=== PATIENT | male | born 1990 | race Caucasian/White ===

== ENCOUNTER 2017-07-10 03:22 | Emergency (ER) | payer SELFPAY ==
[~2017-07-10] VITALS: Ht 167.6 cm; Wt 60.0 kg
[2017-07-10 03:25] VITALS: BP 122/73; PULSE 101; RESP 18; TEMP 98.2; O2SAT 100
[2017-07-10] MEDS ORDERED: ACETAMINOPHEN/HYDROcodone 325 MG/5 MG TAB PO ONE (03:30)
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
[2017-07-10 04:17] LABS: AUTOMATED NEUTROPHIL # 6.2 TH/MM3 (1.8-7.7); BASOPHIL # 0.1 TH/MM3 (0-0.2); BASOPHIL % 0.6 % (0.0-2.0); EOSINOPHIL % 0.3 % (0.0-4.0); HEMO FLAGS DIFF FINAL; LYMPH % 26.5 % (9.0-44.0); LYMPHOCYTE # 2.6 TH/MM3 (1.0-4.8); MEAN CELL VOLUME 94.6 FL (80.0-100.0); MEAN CORPUSCULAR HEMOGLOBIN 31.7 PG (27.0-34.0); MEAN CORPUSCULAR HGB CONC 33.5 % (32.0-36.0); MONO % 8.4 % (0.0-8.0); NEUT % 64.2 % (16.0-70.0); PLATELET COUNT 231 TH/MM3 (150-450); RED BLOOD COUNT 4.96 MIL/MM3 (4.50-5.90); WHITE BLOOD COUNT 9.6 TH/MM3 (4.0-11.0)
--- NOTE | 2017-07-10 04:23 | RADRPT ---
EXAM DATE/TIME: 07/10/2017 03:53 [facility] COMPARISON: No previous studies available for comparison. INDICATIONS : Left upper extremity pain, elbow. MEDICAL HISTORY : None. SURGICAL HISTORY : None. ENCOUNTER: Initial ACUITY: 1 day PAIN SCORE: 6/10 LOCATION: Left upper extremity elbow FINDINGS: Multiple view examination of the left elbow demonstrates no soft tissue swelling, joint effusion, or fracture. The osseous structures are in normal alignment. Bony mineralization is normal. CONCLUSION: Unremarkable examination of the left elbow. Seun Vicente MD on July 10, 2017 at 4:21 Board Certified Radiologist. This report was verified electronically.
--- NOTE | 2017-07-10 04:23 | RADRPT ---
EXAM DATE/TIME: 07/10/2017 03:45 [facility] COMPARISON: No previous studies available for comparison. INDICATIONS : Left upper extremity pain due to fall. MEDICAL HISTORY : None. SURGICAL HISTORY : None. ENCOUNTER: Initial ACUITY: 1 day PAIN SCORE: 6/10 LOCATION: Left upper extremity shoulder FINDINGS: Multiple view examination of the left shoulder demonstrates no evidence of fracture or dislocation. The glenohumeral and acromioclavicular joints are maintained. There is normal range of motion betwee n internal and external rotation. Bony mineralization is normal. CONCLUSION: Normal examination for a patient of this age. Seun Vicente MD on July 10, 2017 at 4:21 Board Certified Radiologist. This report was verified electronically.
[2017-07-10 04:52] LABS: ALT (GPT) 19 U/L (12-78); ANION GAP 9 MEQ/L (5-15); AST (GOT) 26 U/L (15-37); BICARBONATE 25.2 MEQ/L (21.0-32.0); BLOOD UREA NITROGEN 6 MG/DL (7-18); CHLORIDE 107 MEQ/L (98-107); GLOMERULAR FILTRATION RATE 109 ML/MIN (>89); POTASSIUM 4.2 MEQ/L (3.5-5.1); SODIUM (NA) 141 MEQ/L (136-145)
[2017-07-10 04:53] LABS: ALCOHOL 222 MG/DL (0-5)
[2017-07-10 04:54] LABS: ALKALINE PHOSPHATASE 71 U/L (45-117); TOTAL BILIRUBIN ADULT 0.6 MG/DL (0.2-1.0)
[2017-07-10 11:26] VITALS: BP 123/78; PULSE 87; RESP 18; TEMP 98.3; O2SAT 96
--- NOTE | 2017-07-10 12:08 | PD ---
History of Present Illness Chief Complaint: Psychiatric Symptoms Time Seen by Provider: 11:35 Travel History International Travel<30 Days: No Contact w/Intl Traveler<30days: No Known affected area: No Legal Status Legal Status: Voluntary History of Present Illness: History of Present Illness This is a 26-year-old male with vague psychiatric history who presents via EMS for evaluation of left arm pain as well as complaining of suicidal and homicidal ideation and depression. He reports a history of schizophrenia, depression, bipolar disorder, anxiety.He does not remember the names of his last prescribed medications except that he took Seroquel 50 mg at nighttime as well as Klonopin. He reports he has been off medications x 3 months since he moved to the area also 3 months ago. He currently does not have a psychiatrist that he sees on a regular basis and has not made any efforts at securing treatment since he has been here. 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 For unknown reasons he is no longer with him. He is not providing much information. He then tells me that he came down here to be with a girlfriend but he is no longer with her. He is reporting feeling depressed but is unable to tell me the symptoms he is experiencing and states " I'ts hard to explain the symptoms". He is vague regarding specific psychiatric symptoms and gets angry when he is asked for specifics. Antisocial personality traits are noted. He is requesting to get back in treatment including medications. He also talks about wanting to get back to [place] " where I have my 3 year old daughter". EMR reviewed. No previous contact with [facility]. BAL is 222 on arrival. No other lab work is available at this time. He has been monitored in Ed with a sitter at bedside with no suicidality or behaviors reported. The patient is in bed. Awake, alert and oriented, suntanned male who appears stated age.Clinically sober . He is wearing black pants and a t shirt and maintaining basic hygiene. He is irritable . Speech is clear and logical . There is no psychosis, no josiane and no hypomania. I can elicit no delusions or paranoia. He reports feeling depressed but I find no subjective clinical indication of a significant depressed state. He does not verbalize suicidal ideation and had no plan when he presented to the ED. he does not present any suicidal ideation and only threatens to " maybe do something " when a discussion of discharge from ED is initiated. He is invested in being admitted to this facility and I am suspicious of his true motives. I suspect that he may be malingering his symptoms to obtain secondary gains such as detention s. he has eluded to having terminated with his girlfriend and not wanting to talk with her or with her mother who has called . He admits to drinking some alcohol tonight. Denies any illicit drug use and denies that he drinks on a daily basis. PFSH Past Medical History ADHD: Yes Bipolar Disorder: Yes Schizophrenia: Yes Past Surgical History Other Surgery: Yes (HERNIA ) Psychiatric History Psychiatric History Hx Psychiatric Treatment: Reports that he was first hoispitalized at age 14 years for d epression. Two other hospitalizations but unable to remember the name of the facility or the dates. No hx of previous sucide attempt. History of Inpatient Treatment: Yes Guns or firearms in home: No Social History Single male. Moved to [facility] 3 months a go. has worked in construction. Hx Alcohol Use: Yes Hx Tobacco Use: Yes (1/2 PPD ) Hx Substance Use: No Substance Use Type: Alcohol Hx of Substance Use Treatment: No Family Psychiatric History Negative Allergies-Medications (Allergen,Severity, Reaction): Coded Allergies: No Known Allergies (Verified Allergy, Unknown, 07/10/17) Reported Meds & Prescriptions Reported Meds & Active Scripts Active No Active Prescriptions or Reported Medications Exam Alert: Yes [place]: Person (ox4) Mood: Angry Affect: Appropriate Speech: Clear, Logical Eye Contact: Normal Memory Intact: Comment (Not impiared) Hallucinations: Other (Negative) Delusions: No Suicidal: Plan (none) Homicidal: Ideation (negative) Insight/Judgement Poor . Not impaired. MDM Medical Decision Making Medical Record Reviewed: Yes Assessment/Plan This is a 26-year-old male with vague psychiatric history who presents via EMS for evaluation of left arm pain and later complaining of suicidal and homicidal ideation and depression. The patient was intoxicated on arrival with BAL of 222. He was vague in terms of symptomatology, previous medication, previous treatments. He was not interested in obtaining referral for [facility] mental health services as he was most interested in being admitted to this facility. he was angry when he was advised that he would not be admitted. He presents contradictions in terms of requesting treatment but then refusing when the treatment is not hospitalization. he does not meet criteria for inpatient treatment at this time and I suspect that he is malingering symptoms due to being homeless at this time. Cleared for discharge from psychiatry. Patient appears to be malingering for detention at this time. Orders Elbow, Complete (4 Vws) (07/10/17 ) Shoulder, Complete (>2vws) (07/10/17 ) Complete Blood Count With Diff (07/10/17 03:29) Comprehensive Metabolic Panel (07/10/17 03:29) Psych Screen (07/10/17 03:29) Drug Screen, Random Urine (07/10/17 03:29) Alcohol (Ethanol) (07/10/17 03:29) Acetamin-Hydrocod 325-5 Mg ([place] 5-325 (07/10/17 03:30) Support Splint (07/10/17 04:57) Sling Cradle Arm (07/10/17 ) Diet Regular Basic (07/10/17 Breakfast) Diet Regular Basic (07/10/17 Lunch) Results Vital Signs Date Time Temp Pulse Resp B/P Pulse Ox O2 Delivery O2 Flow Rate FiO2 07/10/17 11:26 98.3 87 18 123/78 96 07/10/17 03:25 98.2 101 18 122/73 100 Laboratory Tests Test 07/10/17 07/10/17 03:40 04:04 Urine Opiates Screen NEG Urine Barbiturates Screen NEG Urine Amphetamines Screen NEG Urine Benzodiazepines Screen NEG Urine Cocaine Screen NEG Urine Cannabinoids Screen NEG White Blood Count 9.6 Red Blood Count 4.96 Hemoglobin 15.7 Hematocrit 47.0 Mean Corpuscular Volume 94.6 Mean Corpuscular Hemoglobin 31.7 Mean Corpuscular Hemoglobin 33.5 Concent Red Cell Distribution Width 14.0 Platelet Count 231 Mean Platelet Volume 6.9 Neutrophils (%) (Auto) 64.2 Lymphocytes (%) (Auto) 26.5 Monocytes (%) (Auto) 8.4 Eosinophils (%) (Auto) 0.3 Basophils (%) (Auto) 0.6 Neutrophils # (Auto) 6.2 Lymphocytes # (Auto) 2.6 Monocytes # (Auto) 0.8 Eosinophils # (Auto) 0.0 Basophils # (Auto) 0.1 CBC Comment DIFF FINAL Differential Comment Sodium Level 141 Potassium Level 4.2 Chloride Level 107 Carbon Dioxide Level 25.2 Anion Gap 9 Blood Urea Nitrogen 6 Creatinine 0.84 Estimat Glomerular Filtration 109 Rate Random Glucose 76 Calcium Level 8.7 Total Bilirubin 0.6 Aspartate Amino Transf 26 (AST/SGOT) Alanine Aminotransferase 19 (ALT/SGPT) Alkaline Phosphatase 71 Total Protein 7.8 Albumin 3.9 Ethyl Alcohol Level 222 Diagnosis Primary Impression: Alcohol abuse Additional Impression: alcohol induced mod disorder Ruled Out: Suicidal ideation Psychiatrically Cleared: Yes Prescriptions No Active Prescriptions or Reported Meds Disposition: 01 DISCHARGE HOME Condition: Stable Problem Qualifiers Monse Weiss Jul 10, 2017 12:08
== END 2017-07-10 11:55 | disposition home or self-care (01) ==
LOC: NEPD 03:22
DX: S50.02XA Contusion of left elbow, initial encounter (principal); F10.129 Alcohol abuse with intoxication, unspecified; R45.851 Suicidal ideations; F10.14 Alcohol abuse with alcohol-induced mood disorder; F17.210 Nicotine dependence, cigarettes, uncomplicated; F31.9 Bipolar disorder, unspecified; F20.9 Schizophrenia, unspecified; W18.30XA Fall on same level, unspecified, initial encounter; Y93.01 Activity, walking, marching and hiking; Y92.410 Unspecified street and highway as the place of occurrence of the external cause; Y90.7 Blood alcohol level of 200-239 mg/100 ml
CPT/HCPCS: 73030; 73080; 80053; 80307; 85025; 99284

== ENCOUNTER 2017-09-07 02:54 | Emergency (ER) | payer SELFPAY ==
[~2017-09-07] VITALS: Ht 177.8 cm; Wt 70.0 kg
[2017-09-07 03:05] VITALS: BP 106/68; PULSE 81; RESP 16; TEMP 98.8; O2SAT 99
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
[2017-09-07 04:00] VITALS: O2SAT 99
--- NOTE | 2017-09-07 04:25 | RADRPT ---
EXAM DATE/TIME: 09/07/2017 03:36 [place] Corrected on: September 07, 2017; [facility] COMPARISON: No previous studies available for comparison. INDICATIONS : Chest pain. MEDICAL HISTORY : None. SURGICAL HISTORY : None. ENCOUNTER: Initial ACUITY: 1 day PAIN SCORE: 0/10 LOCATION: Bilateral chest FINDINGS: A single view of the chest demonstrates the lungs to be symmetrically aerated without evidence of mas s, infiltrate or effusion. The cardiomediastinal contours are unremarkable. Osseous structures are intact. CONCLUSION: No acute cardiopulmonary disease. Adrian Russ MD on September 07, 2017 at 4:23 Board Certified Radiologist. This report was verified electronically. Adrian Russ MD on September 07, 2017 at 5:53 Board Certified Radiologist. This report was verified electronically.
--- NOTE | 2017-09-07 04:30 | RADRPT ---
EXAM DATE/TIME: 09/07/2017 03:39 [facility] COMPARISON: No previous studies available for comparison. INDICATIONS : Pain in left hip. MEDICAL HISTORY : None. SURGICAL HISTORY : None. ENCOUNTER: Initial ACUITY: 1 day PAIN SCORE: 0/10 LOCATION: Bilateral pelvis FINDINGS: A single frontal view of the pelvis demonstrates no evidence of fracture. The bony pelvic ring is in tact. Bony mineralization is normal. The soft tissues are intact. CONCLUSION: 1. There is no evidence of acute fracture. Adiran Russ MD on September 07, 2017 at 4:28 Board Certified Radiologist. This report was verified electronically.
[2017-09-07 04:58] VITALS: BP 106/68; PULSE 81; RESP 16; TEMP 98.5; O2SAT 99
[2017-09-07 05:07] LABS: AUTOMATED NEUTROPHIL # 7.3 TH/MM3 (1.8-7.7); BASOPHIL % 0.3 % (0.0-2.0); EOSINOPHIL # 0.1 TH/MM3 (0-0.4); EOSINOPHIL % 1.2 % (0.0-4.0); HEMATOCRIT 49.5 % (39.0-51.0); HEMO FLAGS DIFF FINAL; LYMPH % 19.6 % (9.0-44.0); LYMPHOCYTE # 2.1 TH/MM3 (1.0-4.8); MEAN CELL VOLUME 92.5 FL (80.0-100.0); MEAN CORPUSCULAR HEMOGLOBIN 32.2 PG (27.0-34.0); MEAN CORPUSCULAR HGB CONC 34.8 % (32.0-36.0); MONO % 9.8 % (0.0-8.0); NEUT % 69.1 % (16.0-70.0); PLATELET COUNT 282 TH/MM3 (150-450); RED BLOOD COUNT 5.35 MIL/MM3 (4.50-5.90); RED CELL DISTRIBUTION WIDTH 13.5 % (11.6-17.2); WHITE BLOOD COUNT 10.6 TH/MM3 (4.0-11.0)
[2017-09-07 05:32] LABS: ALKALINE PHOSPHATASE 96 U/L (45-117); TOTAL BILIRUBIN ADULT 0.5 MG/DL (0.2-1.0)
[2017-09-07 05:41] LABS: ALCOHOL 255 MG/DL (0-5)
[2017-09-07 05:49] LABS: ALT (GPT) 25 U/L (12-78); ANION GAP 8 MEQ/L (5-15); AST (GOT) 36 U/L (15-37); BICARBONATE 28.5 MEQ/L (21.0-32.0); BLOOD UREA NITROGEN 4 MG/DL (7-18); CHLORIDE 108 MEQ/L (98-107); GLOMERULAR FILTRATION RATE 108 ML/MIN (>89); POTASSIUM 3.9 MEQ/L (3.5-5.1); SODIUM (NA) 144 MEQ/L (136-145)
[2017-09-07 05:50] LABS: ACETAMINOPHEN LESS THAN 2.0 MCG/ML (10.0-30.0)
[2017-09-07] MEDS ORDERED: IOHEXOL 350 MG/ML 10 ML VIAL (for RAD DIAG) IVCONTRAST ONE (06:20)
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
[2017-09-07 11:26] VITALS: BP 140/67; PULSE 86; RESP 17; O2SAT 97
== END 2017-09-07 15:36 | disposition left against medical advice (07) ==
LOC: NEPC 02:54
DX: F20.9 Schizophrenia, unspecified (principal); F31.9 Bipolar disorder, unspecified; F17.200 Nicotine dependence, unspecified, uncomplicated; Z91.14 Patient's other noncompliance with medication regimen
CPT/HCPCS: 71010; 72170; 74177; 80053; 80307; 83690; 84443; 85025; 99285; Q9967

== ENCOUNTER 2017-09-13 02:16 | Emergency (ER) | payer SELFPAY ==
[~2017-09-13] VITALS: Ht 172.7 cm; Wt 77.3 kg
[2017-09-13 02:20] VITALS: BP 108/54; PULSE 100; RESP 16; TEMP 98.7; O2SAT 96
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
[2017-09-13 03:41] LABS: AUTOMATED NEUTROPHIL # 16.3 TH/MM3 (1.8-7.7); BASOPHIL # 0.1 TH/MM3 (0-0.2); BASOPHIL % 0.4 % (0.0-2.0); EOSINOPHIL % 0.1 % (0.0-4.0); HEMATOCRIT 48.8 % (39.0-51.0); HEMOGLOBIN 16.7 GM/DL (13.0-17.0); LYMPH % 6.8 % (9.0-44.0); LYMPHOCYTE # 1.3 TH/MM3 (1.0-4.8); MEAN CELL VOLUME 91.8 FL (80.0-100.0); MEAN CORPUSCULAR HEMOGLOBIN 31.3 PG (27.0-34.0); MEAN CORPUSCULAR HGB CONC 34.1 % (32.0-36.0); MEAN PLATELET VOLUME 6.8 FL (7.0-11.0); MONO % 6.3 % (0.0-8.0); MONOCYTE # 1.2 TH/MM3 (0-0.9); NEUT % 86.4 % (16.0-70.0); PLATELET COUNT 217 TH/MM3 (150-450); RED BLOOD COUNT 5.32 MIL/MM3 (4.50-5.90); RED CELL DISTRIBUTION WIDTH 14.4 % (11.6-17.2); WHITE BLOOD COUNT 18.9 TH/MM3 (4.0-11.0)
[2017-09-13 04:03] LABS: ALBUMIN 3.3 GM/DL (3.4-5.0); ALT (GPT) 27 U/L (12-78); AST (GOT) 44 U/L (15-37); BLOOD UREA NITROGEN 7 MG/DL (7-18); CHLORIDE 106 MEQ/L (98-107); CREATININE 0.79 MG/DL (0.60-1.30); GLOMERULAR FILTRATION RATE 116 ML/MIN (>89); GLUCOSE,RANDOM 83 MG/DL (74-106); LIPASE 364 U/L (73-393); SODIUM (NA) 141 MEQ/L (136-145)
[2017-09-13 04:06] LABS: ALKALINE PHOSPHATASE 86 U/L (45-117); TOTAL BILIRUBIN ADULT 0.6 MG/DL (0.2-1.0); TOTAL PROTEIN 7.1 GM/DL (6.4-8.2)
[2017-09-13] MEDS ORDERED: KETOROLAC TROMETHAMINE 30 MG/ML (IVP) VIAL IV PUSH ONE (04:15)
[2017-09-13] MEDS ORDERED: SODIUM CHLOR 0.9% 1000 ML INJ 1,000 ML IV ONE ×2 (04:15→05:00)
[2017-09-13 04:19] LABS: ACETAMINOPHEN LESS THAN 2.0 MCG/ML (10.0-30.0)
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
[2017-09-13] MEDS ORDERED: IBUP400T20 PO (06:14)
[2017-09-13 06:43] VITALS: BP 116/60
[2017-09-13 06:45] LABS: BILIRUBIN, URINE NEG (NEG); BLOOD, URINE NEG (NEG); GLUCOSE,URINE NEG (NEG); KETONE, URINE TRACE mg/dL (NEG); MUCUS URINE FEW /lpf (OCC); NITRITE,URINE NEG (NEG); URINE COLOR YELLOW (YELLW/STRAW); URINE LEUKOCYTE ESTERASE NEG (NEG)
== END 2017-09-13 06:43 | disposition home or self-care (01) ==
LOC: NEPC 02:16
DX: S30.810A Abrasion of lower back and pelvis, initial encounter (principal); M79.671 Pain in right foot; F31.9 Bipolar disorder, unspecified; F20.9 Schizophrenia, unspecified; F17.200 Nicotine dependence, unspecified, uncomplicated; V09.9XXA Pedestrian injured in unspecified transport accident, initial encounter
CPT/HCPCS: 71010; 72170; 73630; 80053; 80307; 81001; 83690; 85025; 96361; 96374; 99284; J1885; J7030

== ENCOUNTER 2017-10-17 12:29 | Emergency (ER) | payer SELFPAY ==
[~2017-10-17] VITALS: Ht 167.6 cm; Wt 65.0 kg
[~2017-10-17 12:29] MED LIST: IBUP1TAB5 PO
[2017-10-17 12:30] VITALS: BP 117/73; PULSE 100; RESP 18; TEMP 98.6; O2SAT 100
[2017-10-17] MEDS ORDERED: SERO25TA PO (13:15)
[2017-10-17] MEDS ORDERED: CLON.5 PO (13:15)
[2017-10-17] MEDS ORDERED: LORazepam 2 MG/ML VIAL IM ONE (13:30)
[2017-10-17] MEDS ORDERED: HALOPERIDOL LACTATE 5 MG/ML AMP IM ONE (13:30)
[2017-10-17] MEDS ORDERED: diphenhydrAMINE HCL 50 MG/ML VIAL IM ONE (13:30)
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
[2017-10-17 15:25] LABS: AUTOMATED NEUTROPHIL # 4.6 TH/MM3 (1.8-7.7); BASOPHIL % 0.7 % (0.0-2.0); EOSINOPHIL # 0.1 TH/MM3 (0-0.4); EOSINOPHIL % 1.1 % (0.0-4.0); HEMATOCRIT 40.7 % (39.0-51.0); HEMO FLAGS DIFF FINAL; LYMPH % 22.4 % (9.0-44.0); LYMPHOCYTE # 1.5 TH/MM3 (1.0-4.8); MEAN CELL VOLUME 95.7 FL (80.0-100.0); MEAN CORPUSCULAR HEMOGLOBIN 32.9 PG (27.0-34.0); MEAN CORPUSCULAR HGB CONC 34.4 % (32.0-36.0); MONO % 9.4 % (0.0-8.0); NEUT % 66.4 % (16.0-70.0); PLATELET COUNT 234 TH/MM3 (150-450); RED BLOOD COUNT 4.25 MIL/MM3 (4.50-5.90); RED CELL DISTRIBUTION WIDTH 15.7 % (11.6-17.2); WHITE BLOOD COUNT 6.8 TH/MM3 (4.0-11.0)
[2017-10-17 15:26] LABS: BLOOD, URINE NEG (NEG); GLUCOSE,URINE NEG (NEG); KETONE, URINE NEG (NEG); NITRITE,URINE NEG (NEG); PH, URINE 6.5 (5.0-8.5); URINE COLOR LIGHT-YELLOW (YELLW/STRAW)
[2017-10-17 15:36] LABS: COMMENT (UR) CULT NOT INDICATED; CULTURE IF INDICATED CULT NOT INDICATED
[2017-10-17 15:54] LABS: ALCOHOL 246 MG/DL (0-5); ALT (GPT) 41 U/L (12-78); ANION GAP 7 MEQ/L (5-15); AST (GOT) 33 U/L (15-37); BICARBONATE 30.2 MEQ/L (21.0-32.0); BLOOD UREA NITROGEN 4 MG/DL (7-18); CHLORIDE 108 MEQ/L (98-107); GLOMERULAR FILTRATION RATE 110 ML/MIN (>89); POTASSIUM 3.6 MEQ/L (3.5-5.1); SODIUM (NA) 145 MEQ/L (136-145)
[2017-10-17 15:56] LABS: ALKALINE PHOSPHATASE 58 U/L (45-117); TOTAL BILIRUBIN ADULT 0.2 MG/DL (0.2-1.0)
[2017-10-17 18:20] VITALS: BP 108/55; PULSE 85; RESP 18; O2SAT 98
[2017-10-17 22:14] VITALS: BP 117/57; PULSE 75; RESP 18; O2SAT 98
[2017-10-18 06:20] VITALS: BP 121/58; PULSE 70; RESP 18
[2017-10-18 13:10] VITALS: BP 119/71; PULSE 88; RESP 18; O2SAT 98
[2017-10-18 15:31] VITALS: BP 133/93; PULSE 120; RESP 18; TEMP 98.6; O2SAT 98
--- NOTE | 2017-10-18 22:07 | PD ---
History of Present Illness Chief Complaint: Psychiatric Symptoms Time Seen by Provider: 15:20 Travel History International Travel<30 Days: No Contact w/Intl Traveler<30days: No Known affected area: No Legal Status Legal Status: Campuzano Act Campuzano Act Signed By: DR SERVIN History of Present Illness: History of Present Illness HPI 27-year-old male who presents to the emergency department requesting a psychiatric evaluation . Patient reported that he recently was released from a psychiatric facility in [place] or [place] and that he has been off his psych meds for approximately 3 months. He reported feeling anxious and out of control. The patient was placed under Campuzano act after he was witnessed threatening another patient. Electronic medical record is reviewed. Patient was seen July 10, 2017 at which time he was intoxicated with a blood alcohol level of 246. At that time he reported vague psychiatric symptomatology and it was determined that he appeared to be malingering. He was seen again September 07 at which time he reported that he had been visiting the area for 6 days. Current toxicology is positive for alcohol with a level in the 200s. Patient is awake, alert, mood is irritable. There is no psychosis, no josiane or hypomania. When asked reason for coming to the hospital he states he is stressed " with life". He is vague in terms of symptomatology and reports he has been off his medication for about 3 months since he moved to the area from [place]. He also reports that he was recently released from a psychiatric hospital some more in [place]. He is unable to give any other more specific details about this hospitalization. He admits to continued use of alcohol with at least a 12 pack per day every day.He continues to endorse suicidality and friends that he doesn't know what he would do if he gets if he were to be discharged from this facility. He also states that he wants to get back on his medications which are Klonopin and Seroquel. PFSH Past Medical History ADHD: Yes Asthma: Yes Bipolar Disorder: Yes Diminished Hearing: No Psychiatric: Yes Schizophrenia: Yes Tetanus Vaccination: < 5 Years Past Surgical History Other Surgery: Yes (HERNIA ) Psychiatric History Psychiatric History Hx Psychiatric Treatment: Reports that he was first hoispitalized at age 14 years for depression. Two other hospitalizations but unable to remember the name of the facility or the dates. No hx of previous sucide attempt. History of Inpatient Treatment: Yes Guns or firearms in home: No Social History Single, homeless. Unemployed. Hx Alcohol Use: Yes Hx Tobacco Use: Yes (1/2 PPD ) Hx Substance Use: No Substance Use Type: Alcohol Hx of Substance Use Treatment: No Family Psychiatric History Negative Allergies-Medications (Allergen,Severity, Reaction): Coded Allergies: No Known Allergies (Verified , 10/17/17) Reported Meds & Prescriptions Reported Meds & Active Scripts Active Reported Klonopin (Clonazepam) 0.5 Mg Tab 0.5 Mg PO BID Seroquel (Quetiapine Fumarate) 25 Mg Tab 25 Mg PO HS Review of Systems Except as stated in HPI: all other systems reviewed are Neg Mental Status Examination Appearance: Appropriate (multiple tattoos) Consciousness: Alert Orientation: x4 Motor Activity: Normal gait Speech: Unremarkable Language: Adequate Fund of Knowledge: Adequate Attention and Concentration: Adequate Memory: Impaired (poor historian) Mood: Sad Affect: Appropriate Thought Process & Associations: Intact Thought Content: Appropriate Hallucination Type: None Delusion Type: None Suicidal Ideation: Yes (in context of possible discharge) Suicidal Plan: No Suicidal Intention: No Homicidal Ideation: No Homicidal Plan: No Homicidal Intention: No Insight: Poor Judgment: Impulsive MDM Medical Decision Making Medical Record Reviewed: Yes Assessment/Plan 27-year-old male with reported history of bipolar disorder who claims he was discharged from a mental institution in [place] 2 months ago and since then has been without his medication. He goes on to state that he is been here in [place] 3 months ago. The information that he is provides is inconsistent and vague. Nevertheless he makes verbal threats of possibly harming himself if he were to be discharged. Based on the fact that we have limited information besides to previous emergency department visits, it is determined that he will remain on [facility] waiting list for disposition. Orders Orders Diet Regular Basic (10/18/17 Breakfast) Diet Regular Basic (10/18/17 Lunch) Diet Regular Basic (10/18/17 Dinner) Ed Discharge Order (10/18/17 21:41) Results Vital Signs Date Time Temp Pulse Resp B/P (MAP) Pulse Ox O2 Delivery O2 Flow Rate FiO2 10/18/17 21:36 10/18/17 13:10 88 18 119/71 (87) 98 Room Air 10/18/17 06:20 70 18 121/58 (79) 10/17/17 22:14 75 18 117/57 (77) 98 Room Air Diagnosis Primary Impression: alcohol dependence with alcohol-induced mood disorder Departure Forms: Tests/Procedures Patient Instructions: General Instructions Additional Instructions: GO TO [facility] FOR [facility]ALUATION AND TREATMENT Med/ Other Pt Specific Info: No Meds Exist/No RX given Disposition: 65 DISC TO PSYCH CARE FACILITY Condition: Stable Weiss,Monse STEPHEN Oct 18, 2017 22:07
== END 2017-10-18 21:48 ==
LOC: NEPJ 12:29
DX: F10.24 Alcohol dependence with alcohol-induced mood disorder (principal); F31.9 Bipolar disorder, unspecified; F20.9 Schizophrenia, unspecified; R45.851 Suicidal ideations; F17.210 Nicotine dependence, cigarettes, uncomplicated; Z59.0 Homelessness; Y90.8 Blood alcohol level of 240 mg/100 ml or more
CPT/HCPCS: 80053; 80307; 81001; 85025; 96372; 99285; J1200; J1630; J2060

== ENCOUNTER 2017-11-12 04:03 | Emergency (ER) | payer SELFPAY ==
[~2017-11-12] VITALS: Ht 167.6 cm; Wt 65.0 kg
[~2017-11-12 04:03] MED LIST changes: +CLON.5 PO; -IBUP1TAB5 PO; +SERO25TA PO
[2017-11-12 04:13] VITALS: BP 122/72; PULSE 102; RESP 20; TEMP 97.8; O2SAT 98
[2017-11-12] MEDS ORDERED: LORazepam 2 MG/ML VIAL ONE (04:27)
[2017-11-12] MEDS ORDERED: HALOPERIDOL LACTATE 5 MG/ML AMP IM ONE (04:45)
[2017-11-12 05:12] LABS: AUTOMATED NEUTROPHIL # 6.5 TH/MM3 (1.8-7.7); BASOPHIL # 0.1 TH/MM3 (0-0.2); BASOPHIL % 0.7 % (0.0-2.0); EOSINOPHIL # 0.1 TH/MM3 (0-0.4); EOSINOPHIL % 0.6 % (0.0-4.0); HEMATOCRIT 44.9 % (39.0-51.0); HEMOGLOBIN 15.4 GM/DL (13.0-17.0); LYMPH % 28.6 % (9.0-44.0); MEAN CELL VOLUME 94.1 FL (80.0-100.0); MEAN CORPUSCULAR HEMOGLOBIN 32.4 PG (27.0-34.0); MEAN CORPUSCULAR HGB CONC 34.4 % (32.0-36.0); MEAN PLATELET VOLUME 7.1 FL (7.0-11.0); MONO % 8.4 % (0.0-8.0); MONOCYTE # 0.9 TH/MM3 (0-0.9); NEUT % 61.7 % (16.0-70.0); PLATELET COUNT 268 TH/MM3 (150-450); RED BLOOD COUNT 4.77 MIL/MM3 (4.50-5.90); RED CELL DISTRIBUTION WIDTH 14.1 % (11.6-17.2); WHITE BLOOD COUNT 10.5 TH/MM3 (4.0-11.0)
[2017-11-12 05:19] LABS: ALBUMIN 3.7 GM/DL (3.4-5.0); ALT (GPT) 24 U/L (12-78); AST (GOT) 28 U/L (15-37); BICARBONATE 30.4 MEQ/L (21.0-32.0); BLOOD UREA NITROGEN 4 MG/DL (7-18); CALCIUM 8.3 MG/DL (8.5-10.1); CHLORIDE 108 MEQ/L (98-107); GLOMERULAR FILTRATION RATE 114 ML/MIN (>89); GLUCOSE,RANDOM 82 MG/DL (74-106); SODIUM (NA) 146 MEQ/L (136-145)
[2017-11-12 05:21] LABS: ALKALINE PHOSPHATASE 75 U/L (45-117); TOTAL BILIRUBIN ADULT 0.3 MG/DL (0.2-1.0)
--- NOTE | 2017-11-12 05:23 | PD ---
HPI Chief Complaint: Psychiatric Symptoms Time Seen by Provider: 05:19 Travel History International Travel<30 days: No Contact w/Intl Traveler<30days: No Traveled to known affect area: No History of Present Illness HPI 27-year-old male presents to emergency department are [facility] by . The patient was acutely delusional. The patient states that a white supremacist group was out after him. He also makes note that he feels somewhat had put narcotics in his drink earlier today. No suicidal or homicidal ideation. Patient appears to be acutely delusional and psychotic. He is medicated with Haldol 10 mg IM and 2 mg of Ativan IM. Review of the medical records indicates prior psychiatric admissions. PFS Past Medical History ADHD: Yes Asthma: Yes Bipolar Disorder: Yes Diminished Hearing: No Psychiatric: Yes Schizophrenia: Yes Past Surgical History Other Surgery: Yes (HERNIA ) Social History Alcohol Use: Yes Tobacco Use: Yes (1/2 PPD ) Substance Use: Yes Allergies-Medications (Allergen,Severity, Reaction): Coded Allergies: No Known Allergies (Verified , 11/12/17) Reported Meds & Prescriptions Reported Meds & Active Scripts Active Review of Systems ROS Limitations: Psychotic Physical Exam Narrative GENERAL: Well-nourished, well-developed patient. SKIN: Warm and dry. HEAD: Normocephalic and atraumatic. EYES: No scleral icterus. No injection or drainage. ENT: No nasal drainage noted. Mucous membranes pink. Airway patent. NECK: Supple, trachea midline. Moves head freely without obvious discomfort. CARDIOVASCULAR: Regular rate and rhythm without murmurs, gallops, or rubs. RESPIRATORY: Breath sounds equal bilaterally. No accessory muscle use. GASTROINTESTINAL: Abdomen soft, non-tender, nondistended. EXTREMITIES: No cyanosis or edema. BACK: Nontender without obvious deformity. No CVA tenderness. NEURO: Patient is alert and oriented. no sensorimotor deficits. Nonfocal. Pressured speech. PSYCH: Acutely delusional and psychotic. Data Data Last Documented VS Vital Signs Date Time Temp Pulse Resp B/P (MAP) Pulse Ox O2 Delivery O2 Flow Rate FiO2 11/12/17 04:13 97.8 102 20 122/72 (89) 98 Orders Orders Lorazepam Inj (Ativan Inj) (11/12/17 04:27) Haloperidol Inj (Haldol Inj) (11/12/17 04:45) Complete Blood Count With Diff (11/12/17 04:48) Comprehensive Metabolic Panel (11/12/17 04:48) Psych Screen (11/12/17 04:48) Drug Screen, Random Urine (11/12/17 04:48) Alcohol (Ethanol) (11/12/17 04:48) Salicylates (Aspirin) (11/12/17 04:48) Tylenol (Acetaminophen) (11/12/17 04:48) Labs Laboratory Tests Test 11/12/17 04:50 White Blood Count 10.5 TH/MM3 Red Blood Count 4.77 MIL/MM3 Hemoglobin 15.4 GM/DL Hematocrit 44.9 % Mean Corpuscular Volume 94.1 FL Mean Corpuscular Hemoglobin 32.4 PG Mean Corpuscular Hemoglobin Concent 34.4 % Red Cell Distribution Width 14.1 % Platelet Count 268 TH/MM3 Mean Platelet Volume 7.1 FL Neutrophils (%) (Auto) 61.7 % Lymphocytes (%) (Auto) 28.6 % Monocytes (%) (Auto) 8.4 % Eosinophils (%) (Auto) 0.6 % Basophils (%) (Auto) 0.7 % Neutrophils # (Auto) 6.5 TH/MM3 Lymphocytes # (Auto) 3.0 TH/MM3 Monocytes # (Auto) 0.9 TH/MM3 Eosinophils # (Auto) 0.1 TH/MM3 Basophils # (Auto) 0.1 TH/MM3 CBC Comment DIFF FINAL Differential Comment Salicylates Level 3.0 MG/DL MDM Medical Decision Making Medical Screen Exam Complete: Yes Emergency Medical Condition: Yes Medical Record Reviewed: Yes Differential Diagnosis MDM: High Differential diagnoses: Schizophrenia, schizoaffective disorder, bipolar, anxiety, depression, adjustment reaction, mood disorder NOS, ODD, depressive disorder NOS, dementia, dementia with agitation, psychosis NOS, substance induced mood disorder, DMDD, Asperger syndrome, infection,electrolyte abnormality, malingering. Narrative Course Mental health screening discussed with the patient. Psychiatric screen ordered. The patient is medicated with Haldol 10 mg and Ativan 2 mg IM due to his acute psychosis and delusions. He is uncooperative. He is climbing and standing on the bed. Condition: Stable Seun Segovia Nov 12, 2017 05:23
[2017-11-12 05:28] LABS: ACETAMINOPHEN LESS THAN 2.0 MCG/ML (10.0-30.0)
[2017-11-12 08:40] VITALS: BP 115/76; PULSE 97; RESP 16; O2SAT 100
[2017-11-12 11:07] VITALS: BP 104/56; PULSE 88; RESP 18; TEMP 97.6; O2SAT 100
[2017-11-12 17:33] VITALS: BP 139/75; PULSE 89; RESP 18; TEMP 99.3; O2SAT 100
[2017-11-12 22:03] VITALS: BP 116/73; PULSE 86; RESP 18
[2017-11-13 02:00] VITALS: BP 119/75; PULSE 62; RESP 16; TEMP 97.3; O2SAT 97
[2017-11-13 06:28] VITALS: BP 124/74; PULSE 83; RESP 16; TEMP 98.6; O2SAT 96
--- NOTE | 2017-11-13 11:42 | PD.PSY.CON ---
Provisional Diagnosis Admission Date [place] I. Substance-induced mood disorder, polysubstance abuse, alcohol abuse/intoxication History of Present Illness Service Psychiatry Consult Requested By [facility] Reason for Consult Assessment Primary Care Physician No Primary Care Physician HPI Patient 23-year-old white male who comes here voluntarily for assessment. It appears the patient was out drinking with his girlfriend last night and feels like he lost control does remember the episode. In the ED he had a blood alcohol level of 3 or 9 with urine toxicology positive for entitlements marijuana and cocaine. Patient states he has had legal issues related to the same he is scheduled to go into a rehabilitation program this week. Patient has a long history of wishes of alcohol and drugs in our ED going back a number of years. Above the present time patient is a and O 4 he denies suicidality homicidality voices or visions. He just wishes to be discharged and return home. He denies any prior psychiatric contact hospitalizations a psychotropic medication. Thus at this time patient does not meet criteria for further psychiatric hospitalization. Thus as okay by psych for discharge when medically clear and stable no Rx by me, referred to AA/NA Review of Systems Constitutional: DENIES: Diaphoretic episodes, Fatigue, Fever, Weight gain, Weight loss, Chills, Dizziness, Change in appetite, Night Sweats Endocrine: DENIES: Heat/cold intolerance, Polydipsia, Polyuria, Polyphagia Eyes: DENIES: Blurred vision, Diplopia, Eye inflammation, Eye pain, Vision loss , Photosensitivity, Double Vision Ears, nose, mouth, throat: DENIES: Tinnitus, Hearing loss, Vertigo, Nasal discharge, Oral lesions, Throat pain, Hoarseness, Ear Pain, Running Nose, Epistaxis, Sinus Pain, Toothache, Odynophagia Respiratory: DENIES: Apneas, Cough, Snoring, Wheezing, Hemoptysis, Sputum production, Shortness of breath Cardiovascular: DENIES: Chest pain, Palpitations, Syncope, Dyspnea on Exertion , PND, Lower Extremity Edema, Orthopnea, Claudication Gastrointestinal: DENIES: Abdominal pain, Black stools, Bloody stools, Constipation, Diarrhea, Nausea, Vomiting, Difficulty Swallowing, Anorexia Genitourinary: DENIES: Sexual dysfunction, Urinary frequency, Urinary incontinence, Urgency, Hematuria, Dysuria, Nocturia, Penile Discharge, Testicular Pain, Testicular Swelling Musculoskeletal: DENIES: Joint pain, Muscle aches, Stiffness, Joint Swelling, Back pain, Neck pain Integumentary: DENIES: Abnormal pigmentation, Nail changes, Pruritus, Rash Hematologic/lymphatic: DENIES: Bruising, Lymphadenopathy Immunologic/allergic: DENIES: Eczema, Urticaria Psychiatric: DENIES: Anxiety, Confusion, Mood changes, Depression, Hallucinations, Agitation, Suicidal Ideation, Homicidal Ideation, Delusions Past Family Social History Coded Allergies: No Known Allergies (Verified , 11/12/17) Discontinued Reported Medications Clonazepam (Klonopin) 0.5 Mg Tab, 0.5 MG PO BID, #60 TAB 0 Refills 10/17/17 Quetiapine (Seroquel) 25 Mg Tab, 25 MG PO HS, #30 TAB 0 Refills 10/17/17 Social History Patient states he has a girlfriend Patient's Strengths (min. 2) Patient verbal able axis health care Physical Exam Patient medically cleared ED Vital Signs Vital Signs Date Time Temp Pulse Resp B/P (MAP) Pulse Ox O2 Delivery O2 Flow Rate FiO2 11/13/17 06:28 98.6 83 16 124/74 (91) 96 Room Air I/O 11/13/17 11/13/17 11/14/17 08:00 16:00 00:00 Intake Total 591 ml 591 ml Balance 591 ml 591 ml Lab Results Test 11/12/17 15:30 Urine Opiates Screen NEG Urine Barbiturates Screen NEG Urine Amphetamines Screen POS Urine Benzodiazepines Screen NEG Urine Cocaine Screen POS Urine Cannabinoids Screen POS Mental Status Examination Appearance: Appropriate, Disheveled Consciousness: Alert Orientation: x4 Motor Activity: Normal gait Speech: Unremarkable Language: Adequate Fund of Knowledge: Adequate Attention and Concentration: Adequate Memory: Unremarkable Mood: Other (euthymic) Affect: Other (good range and intensity) Thought Process & Associations: Intact Thought Content: Appropriate Hallucination Type: None Delusion Type: None Suicidal Ideation: No Suicidal Plan: No Suicidal Intention: No Homicidal Ideation: No Homicidal Plan: No Homicidal Intention: No Insight: Adequate Judgment: Adequate (fair) Assessment & Plan Problem List: (1) Substance induced mood disorder ICD Codes: F19.94 - Other psychoactive substance use, unspecified with psychoactive substance-induced mood disorder (2) Polysubstance abuse ICD Codes: F19.10 - Other psychoactive substance abuse, uncomplicated (3) Alcohol abuse with intoxication ICD Codes: F10.129 - Alcohol abuse with intoxication, unspecified Assessment & Plan Estimated LOS: days patient does not meet criteria for further inpatient psychiatric care other care. As okay by psych for discharge when medically clear and stable. No Rx by me. May follow-up with his self [facility] starting next week. Also referred to AA/NA Request HC Surrog/Guard Advoc?: No Syd Rao MD Nov 13, 2017 11:42
--- NOTE | 2017-11-13 12:03 | PD ---
Physical Exam Date Seen by Provider: Nov 13, 2017 Narrative 27 y male presents to emergency department with psychotic behavior. Patient was medically cleared to see psych. Psych evaluated and decided he does not meet inpatient criteria. Patient is cleared to follow-up with outpatient KAI Uriarte/[facility]. Pt agreed to follow up as recommended. Data Data Last Documented VS Vital Signs Date Time Temp Pulse Resp B/P (MAP) Pulse Ox O2 Delivery O2 Flow Rate FiO2 11/13/17 13:45 11/13/17 06:28 98.6 83 16 96 Room Air Orders Orders Lorazepam Inj (Ativan Inj) (11/12/17 04:27) Haloperidol Inj (Haldol Inj) (11/12/17 04:45) Complete Blood Count With Diff (11/12/17 04:48) Comprehensive Metabolic Panel (11/12/17 04:48) Psych Screen (11/12/17 04:48) Drug Screen, Random Urine (11/12/17 04:48) Alcohol (Ethanol) (11/12/17 04:48) Salicylates (Aspirin) (11/12/17 04:48) Tylenol (Acetaminophen) (11/12/17 04:48) Diet Regular Basic (11/12/17 Lunch) Diet Regular Basic (11/12/17 Dinner) Diet Regular Basic (11/13/17 Breakfast) Ed Discharge Order (11/13/17 12:03) Labs Laboratory Tests Test 11/12/17 04:50 11/12/17 15:30 White Blood Count 10.5 TH/MM3 Red Blood Count 4.77 MIL/MM3 Hemoglobin 15.4 GM/DL Hematocrit 44.9 % Mean Corpuscular Volume 94.1 FL Mean Corpuscular Hemoglobin 32.4 PG Mean Corpuscular Hemoglobin Concent 34.4 % Red Cell Distribution Width 14.1 % Platelet Count 268 TH/MM3 Mean Platelet Volume 7.1 FL Neutrophils (%) (Auto) 61.7 % Lymphocytes (%) (Auto) 28.6 % Monocytes (%) (Auto) 8.4 % Eosinophils (%) (Auto) 0.6 % Basophils (%) (Auto) 0.7 % Neutrophils # (Auto) 6.5 TH/MM3 Lymphocytes # (Auto) 3.0 TH/MM3 Monocytes # (Auto) 0.9 TH/MM3 Eosinophils # (Auto) 0.1 TH/MM3 Basophils # (Auto) 0.1 TH/MM3 CBC Comment DIFF FINAL Differential Comment Blood Urea Nitrogen 4 MG/DL Creatinine 0.80 MG/DL Random Glucose 82 MG/DL Total Protein 7.0 GM/DL Albumin 3.7 GM/DL Calcium Level 8.3 MG/DL Alkaline Phosphatase 75 U/L Aspartate Amino Transf (AST/SGOT) 28 U/L Alanine Aminotransferase (ALT/SGPT) 24 U/L Total Bilirubin 0.3 MG/DL Sodium Level 146 MEQ/L Potassium Level 3.9 MEQ/L Chloride Level 108 MEQ/L Carbon Dioxide Level 30.4 MEQ/L Anion Gap 8 MEQ/L Estimat Glomerular Filtration Rate 114 ML/MIN Salicylates Level 3.0 MG/DL Acetaminophen Level LESS THAN 2.0 MCG/ML Ethyl Alcohol Level 309 MG/DL Urine Opiates Screen NEG Urine Barbiturates Screen NEG Urine Amphetamines Screen POS Urine Benzodiazepines Screen NEG Urine Cocaine Screen POS Urine Cannabinoids Screen POS MDM Supervised Visit with JENNIFER: No Condition: Stable Amanda Aviles Nov 13, 2017 12:03
[2017-11-14] MEDS ORDERED: BACT800T5 PO (00:27)
== END 2017-11-13 13:54 | disposition home or self-care (01) ==
LOC: NEPD 04:03 → NEPJ 11-13 13:54
DX: F23 Brief psychotic disorder (principal); F17.200 Nicotine dependence, unspecified, uncomplicated
CPT/HCPCS: 80053; 80307; 85025; 96372; 99285; J1630; J2060

== ENCOUNTER 2017-11-13 22:34 | Emergency (ER) | payer OTHER ==
[~2017-11-13] VITALS: Ht 167.6 cm; Wt 61.0 kg
[2017-11-13 22:54] VITALS: BP 139/71; PULSE 109; RESP 16; O2SAT 98
[2017-11-13 23:00] VITALS: BP 131/79; PULSE 109; RESP 17; TEMP 98.3; O2SAT 98
--- NOTE | 2017-11-13 23:01 | PD ---
HPI Chief Complaint: Psychiatric Symptoms Time Seen by Provider: 22:50 Travel History International Travel<30 days: No Contact w/Intl Traveler<30days: No Traveled to known affect area: No History of Present Illness HPI 27 y/o male presents under Campuzano act [place] by the [employer]. According to his paperwork, "subject stated he took a bunch of pills today in an attempt to harm himself." The patient was just discharged today from psychiatric care here. He reports that his girlfriend gave him 3 Tylenol PM's in order to help him sleep. This was over 7 hours ago. He denies any other ingestions and he denies ingesting anything in an attempt to hurt himself but he does admit to suicidal thoughts and this is the reason why he called the police today. His drug screen from yesterday was positive for amphetamines, cocaine, cannabinoids and his alcohol level was 309. No other complaints at this time. PFSH Past Medical History ADHD: Yes Asthma: Yes Bipolar Disorder: Yes Diminished Hearing: No Psychiatric: Yes Schizophrenia: Yes Past Surgical History Other Surgery: Yes (HERNIA ) Social History Alcohol Use: Yes Tobacco Use: Yes (/2 PPD ) Substance Use: Yes Allergies-Medications (Allergen,Severity, Reaction): Coded Allergies: No Known Allergies (Verified , 11/12/17) Reported Meds & Prescriptions Reported Meds & Active Scripts Active Bactrim DS (Sulfamethoxazole-Trimethoprim) 800-160 Mg Tab 1 Tab PO BID Review of Systems Except as stated in HPI: all other systems reviewed are Neg Physical Exam Narrative GENERAL: Disheveled male in no acute distress SKIN: Warm and dry. HEAD: Atraumatic. Normocephalic. EYES: Pupils equal and round. No scleral icterus. No injection or drainage. ENT: No nasal bleeding or discharge. Mucous membranes pink and moist. NECK: Trachea midline. No JVD. CARDIOVASCULAR: Regular rate and rhythm. No murmur appreciated. RESPIRATORY: No accessory muscle use. Clear to auscultation. Breath sounds equal bilaterally. GASTROINTESTINAL: Abdomen soft, non-tender, nondistended. Hepatic and splenic margins not palpable. MUSCULOSKELETAL: No obvious deformities. No clubbing. No cyanosis. No edema. NEUROLOGICAL: Awake and alert. No obvious cranial nerve deficits. Motor grossly within normal limits. Normal speech. PSYCHIATRIC: Appropriate mood and affect; insight and judgment normal. Data Data Last Documented VS Vital Signs Date Time Temp Pulse Resp B/P (MAP) Pulse Ox O2 Delivery O2 Flow Rate FiO2 11/14/17 04:45 98.3 11/14/17 02:55 103 18 98 11/13/17 23:00 Room Air Orders Orders Complete Blood Count With Diff (11/13/17 22:43) Comprehensive Metabolic Panel (11/13/17 22:43) Alcohol (Ethanol) (11/13/17 22:43) Urinalysis - C+S If Indicated (11/13/17 22:43) Drug Screen, Random Urine (11/13/17 22:43) Psych Screen (11/13/17 22:43) Salicylates (Aspirin) (11/13/17 22:56) Tylenol (Acetaminophen) (11/13/17 22:56) Urine Culture (11/13/17 23:30) Azithromycin Powd Pack (Zithromax Powd P (11/14/17 01:00) Ceftriaxone Inj (Rocephin Inj) (11/14/17 01:00) Lidocaine 1% Inj (50 Ml) (Xylocaine 1% I (11/14/17 01:00) Sulfamet-Trimeth Ds 800-160 Mg (Bactrim (11/14/17 01:00) Azithromycin (Zithromax) (11/14/17 01:15) Labs Laboratory Tests Test 11/13/17 22:55 11/13/17 23:30 White Blood Count 9.5 TH/MM3 Red Blood Count 4.84 MIL/MM3 Hemoglobin 15.4 GM/DL Hematocrit 45.1 % Mean Corpuscular Volume 93.2 FL Mean Corpuscular Hemoglobin 31.8 PG Mean Corpuscular Hemoglobin Concent 34.1 % Red Cell Distribution Width 14.1 % Platelet Count 256 TH/MM3 Mean Platelet Volume 7.5 FL Neutrophils (%) (Auto) 77.1 % Lymphocytes (%) (Auto) 13.4 % Monocytes (%) (Auto) 6.6 % Eosinophils (%) (Auto) 1.6 % Basophils (%) (Auto) 1.3 % Neutrophils # (Auto) 7.3 TH/MM3 Lymphocytes # (Auto) 1.3 TH/MM3 Monocytes # (Auto) 0.6 TH/MM3 Eosinophils # (Auto) 0.2 TH/MM3 Basophils # (Auto) 0.1 TH/MM3 CBC Comment DIFF FINAL Differential Comment Blood Urea Nitrogen 3 MG/DL Creatinine 0.80 MG/DL Random Glucose 89 MG/DL Total Protein 7.0 GM/DL Albumin 3.4 GM/DL Calcium Level 8.3 MG/DL Alkaline Phosphatase 83 U/L Aspartate Amino Transf (AST/SGOT) 42 U/L Alanine Aminotransferase (ALT/SGPT) 27 U/L Total Bilirubin 0.4 MG/DL Sodium Level 144 MEQ/L Potassium Level 3.5 MEQ/L Chloride Level 109 MEQ/L Carbon Dioxide Level 26.6 MEQ/L Anion Gap 8 MEQ/L Estimat Glomerular Filtration Rate 114 ML/MIN Salicylates Level 2.5 MG/DL Acetaminophen Level LESS THAN 2.0 MCG/ML Ethyl Alcohol Level 233 MG/DL Urine Color YELLOW Urine Turbidity CLEAR Urine pH 6.0 Urine Specific [place] 1.006 Urine Protein NEG mg/dL Urine Glucose (UA) NEG mg/dL Urine Ketones NEG mg/dL Urine Occult Blood NEG Urine Nitrite NEG Urine Bilirubin NEG Urine Urobilinogen LESS THAN 2.0 MG/DL Urine Leukocyte Esterase MOD Urine WBC 12 /hpf Urine WBC Clumps RARE Urine Bacteria OCC /hpf Microscopic Urinalysis Comment CULTURE INDICATED Urine Opiates Screen NEG Urine Barbiturates Screen NEG Urine Amphetamines Screen POS Urine Benzodiazepines Screen NEG Urine Cocaine Screen NEG Urine Cannabinoids Screen NEG MDM Medical Decision Making Medical Screen Exam Complete: Yes Emergency Medical Condition: Yes Medical Record Reviewed: Yes Differential Diagnosis Malingering, substance-induced mood disorder, polysubstance abuse, acute psychosis, schizophrenia, bipolar disorder, major depressive disorder Narrative Course 27-year-old male presents under Campuzano act for evaluation of suicidal thoughts. He reports taking 3 Tylenol PM pills over 7 hours ago and denies any other ingestions. He denies self-harm and reports that his girlfriend gave it to him in order to help him sleep. Lab work has been ordered. Mental health screening discussed with the patient. Psychiatric screen ordered. Laboratory has been reviewed. CBC is unremarkable. CMP reveals calcium 8.3, AST 42 otherwise unremarkable. Alcohol level is 223 and the drug screen is positive for amphetamines. Urinalysis reveals moderate leukocytes with WBC clumps, occasional bacteria and culture is pending. It is reasonable to empirically treat this circumcised male with azithromycin and Rocephin for GC coverage. He will be started on Bactrim pending urinalysis culture results. He is medically cleared for psychiatric disposition. 0439: I was informed that the patient had a temporal artery scan temperature of 100.5. He feels well and he has no symptoms to suggest active infectious process-he did have. The BB see clumps in his urine however this was asymptomatic. His lab work is reassuring with a normal white blood cell count and looking through his records from his psychiatric visit over the past 2 days he had no fever during this stay and he had a normal WBC count on November 12. I don't suspect bacteremia, endocarditis. His temperature was rechecked orally and it was normal, 98.3. Diagnosis Primary Impression: Suicidal ideation Additional Impressions: Alcohol abuse Pyuria Scripts Sulfamethoxazole-Trimethoprim (Bactrim DS) 800-160 Mg Tab 1 TAB PO BID for Infection, #14 TAB 0 Refills Prov: Leobardo Tarango MD 11/14/17 Rafael Nguyen Nov 13, 2017 23:01
[2017-11-14 00:10] LABS: BACTERIA, URINE OCC /hpf; BILIRUBIN, URINE NEG (NEG); BLOOD, URINE NEG (NEG); GLUCOSE,URINE NEG (NEG); KETONE, URINE NEG (NEG); NITRITE,URINE NEG (NEG); URINE COLOR YELLOW (YELLW/STRAW); URINE LEUKOCYTE ESTERASE MOD (NEG); WHITE BLOOD CELL CLUMPS RARE
[2017-11-14 00:11] LABS: AUTOMATED NEUTROPHIL # 7.3 TH/MM3 (1.8-7.7); BASOPHIL # 0.1 TH/MM3 (0-0.2); BASOPHIL % 1.3 % (0.0-2.0); EOSINOPHIL # 0.2 TH/MM3 (0-0.4); EOSINOPHIL % 1.6 % (0.0-4.0); HEMATOCRIT 45.1 % (39.0-51.0); HEMOGLOBIN 15.4 GM/DL (13.0-17.0); LYMPH % 13.4 % (9.0-44.0); LYMPHOCYTE # 1.3 TH/MM3 (1.0-4.8); MEAN CELL VOLUME 93.2 FL (80.0-100.0); MEAN CORPUSCULAR HEMOGLOBIN 31.8 PG (27.0-34.0); MEAN CORPUSCULAR HGB CONC 34.1 % (32.0-36.0); MEAN PLATELET VOLUME 7.5 FL (7.0-11.0); MONO % 6.6 % (0.0-8.0); MONOCYTE # 0.6 TH/MM3 (0-0.9); NEUT % 77.1 % (16.0-70.0); PLATELET COUNT 256 TH/MM3 (150-450); RED BLOOD COUNT 4.84 MIL/MM3 (4.50-5.90); RED CELL DISTRIBUTION WIDTH 14.1 % (11.6-17.2); WHITE BLOOD COUNT 9.5 TH/MM3 (4.0-11.0)
[2017-11-14 00:22] LABS: ALBUMIN 3.4 GM/DL (3.4-5.0); ALT (GPT) 27 U/L (12-78); AST (GOT) 42 U/L (15-37); BICARBONATE 26.6 MEQ/L (21.0-32.0); BLOOD UREA NITROGEN 3 MG/DL (7-18); CALCIUM 8.3 MG/DL (8.5-10.1); CHLORIDE 109 MEQ/L (98-107); GLOMERULAR FILTRATION RATE 114 ML/MIN (>89); GLUCOSE,RANDOM 89 MG/DL (74-106); SODIUM (NA) 144 MEQ/L (136-145)
[2017-11-14 00:24] LABS: ALKALINE PHOSPHATASE 83 U/L (45-117); TOTAL BILIRUBIN ADULT 0.4 MG/DL (0.2-1.0)
[2017-11-14] MEDS ORDERED: BACT800T5 PO (00:27)
[2017-11-14] MEDS ORDERED: LIDOCAINE HCL 1% 50 ML VIAL XX ONE (01:00)
[2017-11-14] MEDS ORDERED: cefTRIAXone 250 MG VIAL IM ONE (01:00)
[2017-11-14] MEDS ORDERED: AZITHROMYCIN PWD FOR SUSP 1 GM PACKET PO ONE (01:00)
[2017-11-14] MEDS ORDERED: SULFAMETHOXAZOLE-TRIMETHOPRIM DS 800-160 MG TAB PO ONE (01:00)
[2017-11-14] MEDS ORDERED: AZITHROMYCIN 250 MG TAB PO SCH (01:15)
[2017-11-14 02:55] VITALS: BP 104/64; PULSE 103; RESP 18; TEMP 99.6; O2SAT 98
[2017-11-14 03:58] VITALS: TEMP 100.5
[2017-11-14 04:45] VITALS: TEMP 98.3
[2017-11-14 06:47] VITALS: BP 122/77; PULSE 94; RESP 17; TEMP 98.3; O2SAT 98
[2017-11-14 11:27] VITALS: BP 125/83; PULSE 100; RESP 20; O2SAT 98
--- NOTE | 2017-11-14 15:47 | PD ---
Physical Exam Date Seen by Provider: Nov 14, 2017 Time Seen by Provider: 15:45 Data Data Last Documented VS Vital Signs Date Time Temp Pulse Resp B/P (MAP) Pulse Ox O2 Delivery O2 Flow Rate FiO2 11/14/17 15:50 68 18 120/80 (93) 100 Room Air 11/14/17 06:47 98.3 Orders Orders Complete Blood Count With Diff (11/13/17 22:43) Comprehensive Metabolic Panel (11/13/17 22:43) Alcohol (Ethanol) (11/13/17 22:43) Urinalysis - C+S If Indicated (11/13/17 22:43) Drug Screen, Random Urine (11/13/17 22:43) Psych Screen (11/13/17 22:43) Salicylates (Aspirin) (11/13/17 22:56) Tylenol (Acetaminophen) (11/13/17 22:56) Urine Culture (11/13/17 23:30) Azithromycin Powd Pack (Zithromax Powd P (11/14/17 01:00) Ceftriaxone Inj (Rocephin Inj) (11/14/17 01:00) Lidocaine 1% Inj (50 Ml) (Xylocaine 1% I (11/14/17 01:00) Sulfamet-Trimeth Ds 800-160 Mg (Bactrim (11/14/17 01:00) Azithromycin (Zithromax) (11/14/17 01:15) Diet Regular Basic (11/14/17 Breakfast) Diet Regular Basic (11/14/17 Lunch) Labs Laboratory Tests Test 11/13/17 22:55 11/13/17 23:30 White Blood Count 9.5 TH/MM3 Red Blood Count 4.84 MIL/MM3 Hemoglobin 15.4 GM/DL Hematocrit 45.1 % Mean Corpuscular Volume 93.2 FL Mean Corpuscular Hemoglobin 31.8 PG Mean Corpuscular Hemoglobin Concent 34.1 % Red Cell Distribution Width 14.1 % Platelet Count 256 TH/MM3 Mean Platelet Volume 7.5 FL Neutrophils (%) (Auto) 77.1 % Lymphocytes (%) (Auto) 13.4 % Monocytes (%) (Auto) 6.6 % Eosinophils (%) (Auto) 1.6 % Basophils (%) (Auto) 1.3 % Neutrophils # (Auto) 7.3 TH/MM3 Lymphocytes # (Auto) 1.3 TH/MM3 Monocytes # (Auto) 0.6 TH/MM3 Eosinophils # (Auto) 0.2 TH/MM3 Basophils # (Auto) 0.1 TH/MM3 CBC Comment DIFF FINAL Differential Comment Blood Urea Nitrogen 3 MG/DL Creatinine 0.80 MG/DL Random Glucose 89 MG/DL Total Protein 7.0 GM/DL Albumin 3.4 GM/DL Calcium Level 8.3 MG/DL Alkaline Phosphatase 83 U/L Aspartate Amino Transf (AST/SGOT) 42 U/L Alanine Aminotransferase (ALT/SGPT) 27 U/L Total Bilirubin 0.4 MG/DL Sodium Level 144 MEQ/L Potassium Level 3.5 MEQ/L Chloride Level 109 MEQ/L Carbon Dioxide Level 26.6 MEQ/L Anion Gap 8 MEQ/L Estimat Glomerular Filtration Rate 114 ML/MIN Salicylates Level 2.5 MG/DL Acetaminophen Level LESS THAN 2.0 MCG/ML Ethyl Alcohol Level 233 MG/DL Urine Color YELLOW Urine Turbidity CLEAR Urine pH 6.0 Urine Specific [place] 1.006 Urine Protein NEG mg/dL Urine Glucose (UA) NEG mg/dL Urine Ketones NEG mg/dL Urine Occult Blood NEG Urine Nitrite NEG Urine Bilirubin NEG Urine Urobilinogen LESS THAN 2.0 MG/DL Urine Leukocyte Esterase MOD Urine WBC 12 /hpf Urine WBC Clumps RARE Urine Bacteria OCC /hpf Microscopic Urinalysis Comment CULTURE INDICATED Urine Opiates Screen NEG Urine Barbiturates Screen NEG Urine Amphetamines Screen POS Urine Benzodiazepines Screen NEG Urine Cocaine Screen NEG Urine Cannabinoids Screen NEG MDM Supervised Visit with JENNIFER: No Narrative Course 27-year-old male who presents to the ED for evaluation of possible overdose. The patient was initially seen by Rafael Nguyen, PAC and medically cleared. He was then evaluated by Dr. Rao, psychiatry, who diagnosed up with substance-induced mood disorder and feels that the patient is safe for outpatient treatment. Patient is instructed to follow-up at [facility]. He is stable and discharged home. Diagnosis Primary Impression: Suicidal ideation Additional Impressions: Pyuria Alcohol abuse Substance induced mood disorder Referrals: [facility] (Out patient) Patient Instructions: General Instructions, Urinary Tract Infection in Men (ED) Additional Instruction: Take antibiotics until every pill is gone. Follow-up with [facility] as discussed with Dr. Rao. Return to the ED for any urgent or emergent medical condition. Med/Other Pt SpecificInfo: Prescription(s) given Scripts Sulfamethoxazole-Trimethoprim (Bactrim DS) 800-160 Mg Tab 1 TAB PO BID for Infection, #14 TAB 0 Refills Prov: Leobardo Tarango MD 11/14/17 Disposition: 01 DISCHARGE HOME Condition: Stable Tamra Cook Nov 14, 2017 15:47
--- NOTE | 2017-11-14 15:47 | PD.PSY.CON ---
Provisional Diagnosis Admission Date [place]. Adjustment disorder with mixed features of emotion and conduct f 43.25, history of polysubstance abuse, alcohol abuse and intoxication History of Present Illness Service Psychiatry Consult Requested By EDMD Reason for Consult Campuzano act Primary Care Physician No Primary Care Physician LIBORIO Patient is a 17-year-old white male who comes here under Campuzano act stating that he was having suicidal thoughts after his girlfriend had a miscarriage. Of interest patient seen by me yesterday with alcohol intoxication and polysubstance abuse. He was discharged. It appears he went with his girlfriend she gave him this information he went out drinking. At the present time patient sitting quietly in his room on J pod nurse Nilesh present throughout session. Patient is alert oriented calm cooperative today denying any suicidal homicidal ideation intent or plan stating his upset about the miscarriage and he went to his drinking. He denies any immediate use of amphetamine or other substances. At this time patient does not meet Campuzano criteria will lift Campuzano act allow patient to be discharged from self. Be no Rx given by me. Strong recommendation AA/NA strong recommendation individual counseling Review of Systems Constitutional: DENIES: Diaphoretic episodes, Fatigue, Fever, Weight gain, Weight loss, Chills, Dizziness, Change in appetite, Night Sweats Endocrine: DENIES: Heat/cold intolerance, Polydipsia, Polyuria, Polyphagia Eyes: COMPLAINS OF: Blurred vision, Diplopia, Eye inflammation, Eye pain, Vision loss, Photosensitivity, Double Vision Ears, nose, mouth, throat: DENIES: Tinnitus, Hearing loss, Vertigo, Nasal discharge, Oral lesions, Throat pain, Hoarseness, Ear Pain, Running Nose, Epistaxis, Sinus Pain, Toothache, Odynophagia Respiratory: DENIES: Apneas, Cough, Snoring, Wheezing, Hemoptysis, Sputum production, Shortness of breath Cardiovascular: DENIES: Chest pain, Palpitations, Syncope, Dyspnea on Exertion , PND, Lower Extremity Edema, Orthopnea, Claudication Gastrointestinal: DENIES: Abdominal pain, Black stools, Bloody stools, Constipation, Diarrhea, Nausea, Vomiting, Difficulty Swallowing, Anorexia Musculoskeletal: DENIES: Joint pain, Muscle aches, Stiffness, Joint Swelling, Back pain, Neck pain Psychiatric: COMPLAINS OF: Depression Past Family Social History Coded Allergies: No Known Allergies (Verified , 11/12/17) Active Scripts Sulfamethoxazole-Trimethoprim (Bactrim DS) 800-160 Mg Tab, 1 TAB PO BID for Infection, #14 TAB 0 Refills Prov:Leobardo Tarango MD 11/14/17 Discontinued Reported Medications Clonazepam (Klonopin) 0.5 Mg Tab, 0.5 MG PO BID, #60 TAB 0 Refills 10/17/17 Quetiapine (Seroquel) 25 Mg Tab, 25 MG PO HS, #30 TAB 0 Refills 10/17/17 Family Psych History Denies Social History Having relationship issues with girlfriend who just had miscarriage Patient's Strengths (min. 2) Patient verbal labile axis health care Physical Exam Patient seen screen in ED exam reviewed and agreed with Vital Signs Vital Signs Date Time Temp Pulse Resp B/P (MAP) Pulse Ox O2 Delivery O2 Flow Rate FiO2 11/14/17 11:27 100 20 125/83 (97) 98 Room Air 11/14/17 06:47 98.3 I/O 11/14/17 11/14/17 11/15/17 08:00 16:00 00:00 Intake Total 591 ml Balance 591 ml Lab Results Test 11/13/17 22:55 11/13/17 23:30 White Blood Count 9.5 TH/MM3 Red Blood Count 4.84 MIL/MM3 Hemoglobin 15.4 GM/DL Hematocrit 45.1 % Mean Corpuscular Volume 93.2 FL Mean Corpuscular Hemoglobin 31.8 PG Mean Corpuscular Hemoglobin Concent 34.1 % Red Cell Distribution Width 14.1 % Platelet Count 256 TH/MM3 Mean Platelet Volume 7.5 FL Neutrophils (%) (Auto) 77.1 % Lymphocytes (%) (Auto) 13.4 % Monocytes (%) (Auto) 6.6 % Eosinophils (%) (Auto) 1.6 % Basophils (%) (Auto) 1.3 % Neutrophils # (Auto) 7.3 TH/MM3 Lymphocytes # (Auto) 1.3 TH/MM3 Monocytes # (Auto) 0.6 TH/MM3 Eosinophils # (Auto) 0.2 TH/MM3 Basophils # (Auto) 0.1 TH/MM3 CBC Comment DIFF FINAL Differential Comment Blood Urea Nitrogen 3 MG/DL Creatinine 0.80 MG/DL Random Glucose 89 MG/DL Total Protein 7.0 GM/DL Albumin 3.4 GM/DL Calcium Level 8.3 MG/DL Alkaline Phosphatase 83 U/L Aspartate Amino Transf (AST/SGOT) 42 U/L Alanine Aminotransferase (ALT/SGPT) 27 U/L Total Bilirubin 0.4 MG/DL Sodium Level 144 MEQ/L Potassium Level 3.5 MEQ/L Chloride Level 109 MEQ/L Carbon Dioxide Level 26.6 MEQ/L Anion Gap 8 MEQ/L Estimat Glomerular Filtration Rate 114 ML/MIN Salicylates Level 2.5 MG/DL Acetaminophen Level LESS THAN 2.0 MCG/ML Ethyl Alcohol Level 233 MG/DL Urine Color YELLOW Urine Turbidity CLEAR Urine pH 6.0 Urine Specific [place] 1.006 Urine Protein NEG mg/dL Urine Glucose (UA) NEG mg/dL Urine Ketones NEG mg/dL Urine Occult Blood NEG Urine Nitrite NEG Urine Bilirubin NEG Urine Urobilinogen LESS THAN 2.0 MG/DL Urine Leukocyte Esterase MOD Urine WBC 12 /hpf Urine WBC Clumps RARE Urine Bacteria OCC /hpf Microscopic Urinalysis Comment CULTURE INDICATED Urine Opiates Screen NEG Urine Barbiturates Screen NEG Urine Amphetamines Screen POS Urine Benzodiazepines Screen NEG Urine Cocaine Screen NEG Urine Cannabinoids Screen NEG Date/Time Source Procedure Growth Status 11/13/17 23:30 Urine Clean Catch Urine Culture - Preliminary IMMATURE GROWTH - REINCUBATE Resulted Mental Status Examination Appearance: Appropriate, Disheveled Consciousness: Alert Orientation: x4 Motor Activity: Normal gait Speech: Unremarkable Language: Adequate Fund of Knowledge: Adequate Attention and Concentration: Adequate Memory: Unremarkable Mood: Other (euthymic to mildly dysphoric) Affect: Other (slight increased range and intensity) Thought Process & Associations: Intact Thought Content: Appropriate Hallucination Type: None Delusion Type: None Suicidal Ideation: No Suicidal Plan: No Suicidal Intention: No Homicidal Ideation: No Homicidal Plan: No Homicidal Intention: No Insight: Fair Judgment: Impulsive Assessment & Plan Problem List: (1) Adjustment disorder with depressed mood ICD Codes: F43.21 - Adjustment disorder with depressed mood (2) Alcohol abuse with intoxication ICD Codes: F10.129 - Alcohol abuse with intoxication, unspecified (3) Substance induced mood disorder ICD Codes: F19.94 - Other psychoactive substance use, unspecified with psychoactive substance-induced mood disorder Assessment & Plan Estimated LOS: days patient does not be Campuzano criteria will lift Campuzano act. Is okay by psych for discharge or medically clear and stable. No Rx by me. Referred to AA/NA, for the counseling Discharge Planning See above Request HC Surrog/Guard Advoc?: No Syd Rao MD Nov 14, 2017 15:47
[2017-11-14 15:50] VITALS: BP 120/80; PULSE 68; RESP 18; O2SAT 100
== END 2017-11-14 17:05 | disposition home or self-care (01) ==
LOC: NEPJ 22:34
DX: R45.851 Suicidal ideations (principal); N39.0 Urinary tract infection, site not specified; F10.10 Alcohol abuse, uncomplicated; F19.94 Other psychoactive substance use, unspecified with psychoactive substance-induced mood disorder; F90.9 Attention-deficit hyperactivity disorder, unspecified type; J45.909 Unspecified asthma, uncomplicated; F31.9 Bipolar disorder, unspecified; F20.9 Schizophrenia, unspecified; F17.200 Nicotine dependence, unspecified, uncomplicated
CPT/HCPCS: 80053; 80307; 81001; 85025; 87086; 96372; 99284; J0696